=== PATIENT | male | born 1955 | race Caucasian/White ===

== ENCOUNTER 2019-10-04 10:51 | Emergency (ER) | payer OTHER ==
--- NOTE | 2019-10-04 12:11 | EDM.PDOC ---
ED HPI GENERAL MEDICAL PROBLEM - General Chief Complaint: Diabetic Complaint Stated Complaint: DIABETIC REACTION Time Seen by Provider: 10/04/19 11:30 Source of Information: Reports: Patient History Limitations: Reports: No Limitations - History of Present Illness INITIAL COMMENTS - FREE TEXT/NARRATIVE: Patient presented to the ED because of a hypoglycemic episode today and he was found confused c/o mild headache and brought him to the ED. He is a diabetic and he skipped his breakfast today but inject himself with insulin. - Related Data Allergies Allergy/AdvReac Type Severity Reaction Status Date / Time atorvastatin [From Lipitor] Allergy Other Verified 10/04/19 12:02 bupropion [From Wellbutrin] Allergy Other Verified 10/04/19 12:02 gabapentin Allergy Other Verified 10/04/19 12:02 lisinopril Allergy Other Verified 10/04/19 12:02 varenicline [From Chantix] Allergy Other Verified 10/04/19 12:02 Home Meds: Home Meds Aspirin 325 mg PO DAILY 10/04/19 [History] atenoloL [Atenolol] 37.5 mg PO DAILY 10/04/19 [History] Social & Family History - Tobacco Use Smoking Status *Q: Current Every Day Smoker Years of Tobacco use: 55 Packs/Tins Daily: 1.5 ED ROS GENERAL - Review of Systems Review Of Systems: See Below Constitutional: Reports: No Symptoms HEENT: Reports: No Symptoms Respiratory: Reports: No Symptoms Cardiovascular: Reports: No Symptoms Endocrine: Reports: No Symptoms GI/Abdominal: Reports: No Symptoms : Reports: No Symptoms Musculoskeletal: Reports: No Symptoms Skin: Reports: No Symptoms Neurological: Reports: Confusion, Headache Psychiatric: Reports: No Symptoms Hematologic/Lymphatic: Reports: No Symptoms ED EXAM GENERAL NO PERIP PULSE - Physical Exam Exam: See Below Exam Limited By: No Limitations General Appearance: Alert, No Apparent Distress Eye Exam: Bilateral Eye: PERRL Ears: Normal External Exam, Normal Canal, Hearing Grossly Normal Nose: Normal Inspection, Normal Mucosa Throat/Mouth: Normal Inspection, Normal Lips, Normal Teeth Head: Atraumatic, Normocephalic Neck: Normal Inspection, Supple, Non-Tender, Full Range of Motion Respiratory/Chest: No Respiratory Distress, Lungs Clear, Normal Breath Sounds Cardiovascular: Normal Peripheral Pulses, Regular Rate, Rhythm, No Edema, No Gallop, No JVD, No Murmur, No Rub GI/Abdominal: Normal Bowel Sounds, Soft, Non-Tender, No Organomegaly Back Exam: Normal Inspection, Full Range of Motion Course - Vital Signs Text/Narrative:: Patient was given 2 glasses of apple juice an his BS went up to 151 and his headache and confusion resolved. Last Recorded V/S: Last Vital Signs Temp 36.0 C L 10/04/19 11:25 Pulse 68 10/04/19 11:25 Resp 16 10/04/19 11:25 BP 153/69 H 10/04/19 11:25 Pulse Ox 100 10/04/19 11:25 - Orders/Labs/Meds Labs: Laboratory Tests 10/04/19 10/04/19 Range/Units 11:45 11:45 WBC 8.3 (4.5-12.0) X10-3/uL RBC 4.15 L (4.30-5.75) x10(6)uL Hgb 12.7 L (13.5-17.8) g/dL Hct 38.5 (30.0-51.3) % MCV 92.9 (80-96) fL MCH 30.7 (27.7-33.6) pg MCHC 33.0 (32.2-35.4) g/dL RDW 13.4 (11.5-15.5) % Plt Count 230 (125-369) X10(3)uL MPV 7.5 (7.4-10.4) fL Neut % (Auto) 82.1 H (46-82) % Lymph % (Auto) 11.2 L (13-37) % [place] % (Auto) 5.0 (4-12) % Eos % (Auto) 1 (1.0-5.0) % Baso % (Auto) 1 (0-2) % Neut # (Auto) 6.8 (1.6-8.3) # Lymph # (Auto) 0.9 (0.6-5.0) # [place] # (Auto) 0.4 (0.0-1.3) # Eos # (Auto) 0.1 (0.0-0.8) # Baso # (Auto) 0.0 (0.0-0.2) # Sodium 140 (135-145) mmol/L Potassium 4.3 (3.5-5.3) mmol/L Chloride 107 (100-110) mmol/L Carbon Dioxide 27 (21-32) mmol/L BUN 23 H (7-18) mg/dL Creatinine 1.4 H (0.70-1.30) mg/dL Est Cr Clr Drug Dosing 51.57 mL/min Estimated GFR (MDRD) 51 L (>60) BUN/Creatinine Ratio 16.4 (9-20) Glucose 151 H (80-116) mg/dL Calcium 8.8 (8.6-10.2) mg/dL Departure - Departure Time of Disposition: 12:15 Disposition: Home, Self-Care 01 Condition: Good Clinical Impression: Hypoglycemia - Discharge Information Referrals: PCP,Not In Area [Primary Care Provider] - Additional Instructions: Please read discharge instructions on low blood sugar Follow up with your doctor if this low blood sugar is becoming more frequent Rest for the day and drink at leat 2 liters of water a day Do not inject yourself with insulin if you're planning to skip a meal. Sepsis Event Note (ED) - Evaluation Sepsis Screening Result: No Definite Risk - Focused Exam Vital Signs: Vital Signs Temp Pulse Resp BP Pulse Ox 10/04/19 11:25 36.0 C L 68 16 153/69 H 100
== END 2019-10-04 12:15 | disposition home or self-care (01) ==
LOC: FB.ED 10:51
DX: E16.2 Hypoglycemia, unspecified (principal); F17.210 Nicotine dependence, cigarettes, uncomplicated; Z79.82 Long term (current) use of aspirin; Z79.899 Other long term (current) drug therapy; Z88.8 Allergy status to other drugs, medicaments and biological substances
CPT/HCPCS: 36415; 80048; 82962; 85025; 99284